=== PATIENT | female | born 1955 | race Two or more races ===

== ENCOUNTER 2017-10-10 12:54 | Outpatient (CLI) | payer OTHER | END 2017-10-10 12:57 | disposition home or self-care (01) | LOC: RAD 12:54 | DX: M25.512 Pain in left shoulder (principal) ==

== ENCOUNTER 2018-07-18 09:12 | Emergency (ER) | payer OTHER ==
[~2018-07-18] VITALS: Ht 160 cm; Wt 63.5 kg
[2018-07-18] MEDS ORDERED: ASPIR 8181 MG (09:32)
[2018-07-18] MEDS ORDERED: CLONAZEPAM1 GM (09:32)
[2018-07-18] MEDS ORDERED: GLIPIZIDE10 MG (09:32)
[2018-07-18] MEDS ORDERED: METFORMIN HCL500 MG (09:32)
[2018-07-18] MEDS ORDERED: SYNTHROID50 MCG (09:32)
[2018-07-18] MEDS ORDERED: LOSARTAN POTASS25 MG (09:32)
[2018-07-18] MEDS ORDERED: MUPIROCIN22 GM TOP (12:54)
[2018-07-18] MEDS ORDERED: AMOX-CLAV 875-1 EACH PO (12:54)
== END 2018-07-18 13:35 | disposition home or self-care (01) ==
LOC: ER 09:12
DX: S51.851A Open bite of right forearm, initial encounter (principal); W54.0XXA Bitten by dog, initial encounter; Y93.89 Activity, other specified; Y92.89 Other specified places as the place of occurrence of the external cause; Y99.8 Other external cause status

== ENCOUNTER 2018-07-20 13:22 | Inpatient (IN) | payer OTHER ==
[~2018-07-20] VITALS: Ht 149.9 cm; Wt 54.4 kg
[~2018-07-20 13:22] MED LIST: AMOX-CLAV 875-1 EACH PO; ASPIR 8181 MG; CLONAZEPAM1 GM; GLIPIZIDE10 MG; LOSARTAN POTASS25 MG; METFORMIN HCL500 MG; MUPIROCIN22 GM TOP; SYNTHROID50 MCG
--- NOTE | 2018-07-20 14:33 | NUR ---
SE RECIBE PTE ALERTA Y ORIENTADA X3, PTE SE OBSERVA CON BRAZO R+ EDEMATOSO. PTE SE ATENDIO EN EL [facility] EL JACOB 16 DE ENERO POR HÉCTOR MORDIDA DE UN DERECK EN EL MISMO BRAZO.
--- NOTE | 2018-07-20 15:43 | NUR ---
PTE ALERTA Y ORIENTADA EN 3 ESFERAS.SE CANZALIZA Y SE ANN-MARIE MUESTRAS DE [facility] BAJO MEDIDAS ASEPTICAS. SE ADMINISTRAN MEDICAMENTOS CHING ORDEN MEDICA. SE ORIENTA A PTE SOBRE TRATAMIENTO EL CUAL REFIERE ENTENDER.
[2018-07-25] MEDS ORDERED: LEVAQUIN750 MG PO (09:30)
[2018-07-25] MEDS ORDERED: TRAM1TAB98 PO (09:30)
== END 2018-07-25 18:02 | disposition home or self-care (01) | DRG 638 ==
LOC: ER 13:22 → MEDI 22:47
PROVIDERS: ADMIT Internal Medicine
DX: E11.628 Type 2 diabetes mellitus with other skin complications (principal); L03.113 Cellulitis of right upper limb; Z79.4 Long term (current) use of insulin; D72.828 Other elevated white blood cell count; E03.9 Hypothyroidism, unspecified; S60.57 Other superficial bite of hand; W54.0XXS Bitten by dog, sequela; E11.65 Type 2 diabetes mellitus with hyperglycemia

== ENCOUNTER 2018-11-10 15:47 | Emergency (ER) | payer OTHER ==
[~2018-11-10] VITALS: Ht 149.9 cm; Wt 53.5 kg
[~2018-11-10 15:47] MED LIST changes: +LEVAQUIN750 MG PO; +TRAM1TAB98 PO
== END 2018-11-11 12:56 | disposition home or self-care (01) ==
LOC: ER 15:47
DX: L23.3 Allergic contact dermatitis due to drugs in contact with skin (principal); T49.3X5A Adverse effect of emollients, demulcents and protectants, initial encounter; Y92.89 Other specified places as the place of occurrence of the external cause

== ENCOUNTER 2018-11-11 10:30 | Emergency (ER) | payer OTHER ==
[~2018-11-11] VITALS: Ht 149.9 cm; Wt 54.4 kg
== END 2018-11-11 13:14 | disposition home or self-care (01) ==
LOC: ER 10:30
DX: R21 Rash and other nonspecific skin eruption (principal); T78.49XA Other allergy, initial encounter; X58.XXXA Exposure to other specified factors, initial encounter